=== PATIENT | female | born 1995 | race African-American/Black ===

== ENCOUNTER 2024-08-03 16:26 | Emergency (ER) | payer MEDICARE, SELFPAY ==
--- NOTE | ~2024-08-03 | US_ITS ---
EXAMINATION: US TRIPLEX LOWER EXTREMITY, RIGHT CLINICAL INFORMATION: Swelling and pain. COMPARISON: None available. TECHNIQUE: Color-flow triplex imaging with spectral analysis and compression Doppler were performed on the right lower extremity. FINDINGS: Respiratory variation, normal compression and augmented flow are noted throughout the right lower extremity. The visualized common femoral vein, superficial femoral vein, profunda femoral vein, popliteal vein and midcalf peroneal and posterior tibial venous segments show no evidence of deep venous thrombosis. There is no Ramirez's cyst. US/US venous duplex LE RT IMPRESSION: No evidence of deep venous thrombosis involving the right lower extremity. Electronically signed by: West Jerome DO 08/03/2024 09:08 PM EST RP
--- NOTE | ~2024-08-03 | XR_ITS ---
EXAMINATION: XR ANKLE, RIGHT CLINICAL INFORMATION: Swelling. COMPARISON: None available. TECHNIQUE: AP, lateral, and mortise views of the right ankle. FINDINGS: No fracture. Alignment is anatomic. No erosions. Joint spaces are maintained. There is moderate soft tissue swelling about the ankle. XR/XR ankle RT min 3V IMPRESSION: No fracture or dislocation. Moderate soft tissue swelling. Electronically signed by: West Jerome DO 08/03/2024 09:08 PM RM
--- NOTE | ~2024-08-03 | XR_ITS ---
EXAMINATION: XR FOOT, RIGHT CLINICAL INFORMATION: Swelling. COMPARISON: None available. TECHNIQUE: AP, lateral, and oblique views of the right foot. FINDINGS: There is no fracture or dislocation. Joint spaces are maintained. The regional soft tissue is swollen. XR/XR foot RT min 3V IMPRESSION: No fracture or dislocation. Soft tissue swelling. Electronically signed by: West Jerome DO 08/03/2024 09:10 PM [facility]
[2024-08-03 16:30] VITALS: BP 102/66; PULSE 112; O2SAT 97; BMI 38.0
[2024-08-03 16:43] VITALS: BP 103/51; PULSE 115; RESP 18; TEMP 36.3; O2SAT 100
--- NOTE | 2024-08-03 17:44 | ED.LOWEXIN ---
HPI - Extremity Injury (Lower) General Chief Complaint: Extremity Injury, Lower Stated Complaint: Swelling in r foot Time Seen by Provider: 08/03/24 17:24 Source: patient and EMS Mode of arrival: EMS Limitations: no limitations History of Present Illness ED Provider: FLORENCE LAY PA-C HPI Narrative: 28 year old female presents to the ED today for evaluation of swelling and pain to right foot which began yesterday. Denies any injury or trauma. Remote hx of OCP use. Denies VTE history. Denies recent tick or insect bites. Denies fever, chills, chest pain, SOB or palpitations. Patient is currently on a section 12 at [facility] for suicidal ideation. Related Data Allergies Allergy/AdvReac Type Severity Reaction Status Date / Time No Known Allergies Allergy Verified 08/03/24 16:31 Review of Systems Review of Systems: Constitutional: No fever, chills, fatigue, night sweats, weight changes ENT/Mouth: No ear pain, hearing loss, nasal congestion, sinus pain, rhinorrhea, sore throat Eyes: No eye pain, swelling, redness, vision changes, discharge Cardio: No chest pain, palpitations, MCGREGOR, orthopnea, peripheral edema Pulm: No SOB, cough, sputum, wheezing, dyspnea, hemoptysis GI: No nausea, vomiting, hematemesis, abdominal pain, diarrhea, constipation, hematochezia, melena : No irregular bleeding, dysuria, frequency, urgency, hesitancy, hematuria, flank pain, urinary flow changes, urinary incontinence or retention MSK: No back pain, neck pain, joint pain, myalgias, +swelling right foot/ ankle Skin: No lesions, rashes Neuro: No weakness, numbness, paresthesias, LOC, dizziness, headache Psych: No anxiety/panic, depression, SI/HI, AH/VH All other systems reviewed and are negative. [facility] Past Medical History Attestation statement: The following information was validated with the patient. Source: old records reviewed and nursing notes reviewed Social History Social History Smoked in Last 30 Days: No Use of substances other than those prescribed or required for medical reasons: No Advance Directives: No Advance Directives Information Provided: No Do you have a plan to hurt others: No Plan Patient : No Physical Exam Vital Signs: Vital Signs: Last Vital Signs Temp 97.9 F 08/03/24 22:20 Pulse 62 08/03/24 22:20 Resp 16 08/03/24 22:20 BP 102/58 L 08/03/24 22:20 Pulse Ox 97 08/03/24 22:20 O2 Del Method Room Air 08/03/24 18:09 BMI result Body Mass Index 38.0 tachycardic General: Well appearing, in no acute distress. Skin: Warm, dry, intact. No rashes or lesions. Head: Normocephalic, atraumatic. EENT: Hearing is intact b/l. Conjunctiva clear. PERRLA. EOM intact. Moist mucous membranes.? Neck: Supple without LAD Cardiac: Chest wall symmetric. RRR. No JVD. Lungs: Normal respiratory effort without accessory muscle use. CTA bilaterally? Abdomen: Soft, non-tender, non-distended. No rebound tenderness or guarding Back: No midline spinous or paraspinal tenderness. No step off deformity. Ext: +RLE appears more swollen when compared to left. no overlying erythema or ecchymosis. no deformity. there is 1+ pitting edema to RLE. no tenderness, crepitus or palpable deformity. no calf tenderness. FROM intact to right ankle and all toes. 2+ pt/dp pulse intact. Neuro: AOx3. Normal speech. NV intact distally. Ambulating with limping gait. Psych: Appropriate mood and affect. Responds appropriately to questions. Course Course Course Narrative: 2100 -- CBC with slight leukocytosis without left shift. no priors to compare to. normocytic anemia, H&H above transfusion threshold. chemistry without acute electrolyte abnormality requiring intervention. no melissa. bnp wnl. beta quant undetectable. patient given tylenol for pain. on my interpretation of imaging, I do no visualize acute fracture or clot. official radiology read is not back. > sign out given to my colleague mahesh pearl pending results of xr and venous duplex Reevaluation(s) Reevaluation #1: Patient received in sign-out at change of shift pending imaging. I reviewed the x-rays and the ultrasound with no acute findings. The patient is stable for discharge at this time Time: 21:38 Medications Administered Discontinued Medications Generic Name Dose Route Start Last Admin Trade Name Freq PRN Reason Stop Dose Admin Ibuprofen 600 mg 11/07/24 18:06 08/03/24 18:34 Ibuprofen 600 Mg Tablet PO 08/03/24 18:07 600 mg ONCE ONE Administration Medical Decision Making Medical Decision Making [facility] Narrative: 28 year old female presents to the ED today for evaluation of swelling and pain to right foot which began yesterday. She is nontoxic appaering and in NAD. Vital significant for tachycardia. Not hypoxic.RLE appears more swollen when compared to left. no overlying erythema or ecchymosis. no deformity. there is 1+ pitting edema to RLE. no tenderness, crepitus or palpable deformity. no calf tenderness. FROM intact to right ankle and all toes. 2+ pt/dp pulse intact. ambulating with limping gait. Differential diagnosis includes contusion, arthritis, msk sprain/ strain, fracture, dependent edema, DVT. I do not have concern for acute arterial occlusion, nv compromise, threat to limb, or compartment syndrome. Plan for labs, xr, venous duplex, pain control and re-evaluation. Differential Diagnosis Differential Diagnoses: The differential diagnosis associated with the presentation includes as above. Admission/Observation Not indicated. Lab Data [facility] Lab Attestation statement: I reviewed the patient's lab results. as above. 08/03/24 18:19 08/03/24 18:18 Labs: Lab Results 08/03/24 08/03/24 Range/Units 18:18 18:19 WBC 11.6 H (4.8-10.8) X10*3/uL RBC 3.98 L (4.20-5.50) X10*6/uL Hgb 11.0 L (12.0-16.0) g/dl Hct 33.9 L (37.0-47.0) % MCV 85.2 (80.0-98.0) fL MCH 27.6 (27.0-33.0) pg MCHC 32.4 (31.0-35.0) g/dl RDW 16.3 H (11.0-16.0) % Plt Count 220 (160-400) X10*3/uL MPV 10.1 (9.4-12.3) fL Immature Gran % (Auto) 1.3 H (0.0-0.4) % Neut % (Auto) 78.2 H (45-73) % Lymph % (Auto) 13.0 L (20-40) % [place] % (Auto) 6.9 (2-11) % Eos % (Auto) 0.3 (0-4) % Baso % (Auto) 0.3 (0-2) % Lymph # (Auto) 1.5 (1.2-4.9) X10*3/uL [place] # (Auto) 0.8 (0.1-1.2) X10*3/uL Eos # (Auto) 0.0 (0.0-0.4) X10*3/uL Baso # (Auto) 0.0 (0.0-0.2) X10*3/uL Abs Immat Gran (auto) 0.15 H (0.00-0.03) X10*3/uL Absolute Neuts (auto) 9.1 H (2.0-8.3) x10*3/uL Absolute Nucleated RBC 0.000 (0.0-0.012) X10*3/uL Nucleated RBC % (auto) 0.0 (0.0-0.2) /100WBC Sodium 137 (135-145) mmol/L Potassium 4.7 (3.3-5.1) mmol/L Chloride 108 (96-108) mmol/L Carbon Dioxide 22 (22-29) mmol/L Anion Gap 12 (12-20) BUN 10 (9-16) mg/dL Creatinine 0.76 (0.5-1.4) mg/dL Estim Creat Clear Calc 142.0 Estimated GFR > 60 Random Glucose 87 (60-115) mg/dL Calcium 9.0 (8.4-10.2) mg/dL Magnesium 2.2 (1.6-2.6) mg/dL Total Bilirubin 0.2 (0.0-1.0) mg/dL AST 35 H (5-31) U/L ALT 24 (0-31) U/L Alkaline Phosphatase 69 (39-117) U/L B-Natriuretic Peptide 32 (<100) pg/mL Total Protein 6.7 (6.5-8.0) g/dL Albumin 3.6 (3.5-5.0) g/dL Beta HCG, Quant < 2 mIU/mL Independent Interpretation I performed an independent interpretation of an: Plain X-Ray and Ultrasound Interpretation: xr right ankle/foot without fracture venous duplex RLE without clot Radiology Impression Discussion of test interpretation with radiology: I have reviewed the radiologist's reading. Radiologist Impression: EXAMINATION: XR FOOT, RIGHT CLINICAL INFORMATION: Swelling. COMPARISON: None available. TECHNIQUE: AP, lateral, and oblique views of the right foot. FINDINGS: There is no fracture or dislocation. Joint spaces are maintained. The regional soft tissue is swollen. XR/XR foot RT min 3V IMPRESSION: No fracture or dislocation. Soft tissue swelling. Electronically signed by: West Jerome DO 08/03/2024 09:10 PM EST RP EXAMINATION: XR ANKLE, RIGHT CLINICAL INFORMATION: Swelling. COMPARISON: None available. TECHNIQUE: AP, lateral, and mortise views of the right ankle. FINDINGS: No fracture. Alignment is anatomic. No erosions. Joint spaces are maintained. There is moderate soft tissue swelling about the ankle. XR/XR ankle RT min 3V IMPRESSION: No fracture or dislocation. Moderate soft tissue swelling. Electronically signed by: West Jerome DO 08/03/2024 09:08 PM EST RP EXAMINATION: US TRIPLEX LOWER EXTREMITY, RIGHT CLINICAL INFORMATION: Swelling and pain. COMPARISON: None available. TECHNIQUE: Color-flow triplex imaging with spectral analysis and compression Doppler were performed on the right lower extremity. FINDINGS: Respiratory variation, normal compression and augmented flow are noted throughout the right lower extremity. The visualized common femoral vein, superficial femoral vein, profunda femoral vein, popliteal vein and midcalf peroneal and posterior tibial venous segments show no evidence of deep venous thrombosis. There is no Ramirez's cyst. US/US venous duplex LE RT IMPRESSION: No evidence of deep venous thrombosis involving the right lower extremity. Electronically signed by: Wets Jerome DO 08/03/2024 09:08 PM EST RP Independent Historian Clinical information obtained from an independent historian. History obtained from or confirmed by: EMS Prescription Management I considered prescription management with: Pain Medication Social Determinants Patient?s care significantly limited by Social Determinants of Health including: Other Social Determinant of Health Critical Care Time Critical Care Time Critical Care Time: No Discharge Plan Discharge Clinical Impression: Edema of left lower leg Patient Disposition: Home, Self-Care Instructions: Leg Edema (ED) Additional Instructions: Your x-rays did not show any fractures. Your ultrasound does not show any blood clot. Elevate your leg above your heart while resting. Follow-up with your primary doctor Interventions: ED Discharge Assessment Last Done: 08/03/24 22:20 Discharge Date/Time: 08/03/24 22:28 Print Language: Pashto
[2024-08-03 18:09] VITALS: BP 98/47; PULSE 101; RESP 18; TEMP 36.9; O2SAT 98
[2024-08-03 18:22] LABS: MANUAL DIFF FLAG NO
[2024-08-03 18:25] LABS: Basophils Percent Auto 0.3 % (0-2); Eosinophils Percent Auto 0.3 % (0-4); Hematocrit 33.9 % (37.0-47.0); Imm Gran Abs Auto 0.15 X10*3/uL (0.00-0.03); Imm Gran Pct Auto 1.3 % (0.0-0.4); Lymphocytes Absolute Auto 1.5 X10*3/uL (1.2-4.9); Mean Corpuscular HGB Conc 32.4 g/dl (31.0-35.0); Mean Corpuscular Hemoglobin 27.6 pg (27.0-33.0); Mean Corpuscular Volume 85.2 fL (80.0-98.0); Mean Platelet Volume 10.1 fL (9.4-12.3); Monocytes Absolute Auto 0.8 X10*3/uL (0.1-1.2); Monocytes Percent Auto 6.9 % (2-11); Neutrophils Absolute Auto 9.1 x10*3/uL (2.0-8.3); Neutrophils Percent Auto 78.2 % (45-73); Platelet Count 220 X10*3/uL (160-400); Red Blood Count 3.98 X10*6/uL (4.20-5.50); Red Cell Distribution Width 16.3 % (11.0-16.0); White Blood Count 11.6 X10*3/uL (4.8-10.8)
[2024-08-03] MEDS: Ibuprofen 600 MG TABLET PO (18:34)
--- NOTE | 2024-08-03 18:37 | PC.NURSE ---
pt medicated per provider order. effectiveness pending. pt waiting for xray/ultrasound to be completed at this time. no sob/wob noted. respirations even/unlabored. plan of care ongoing.
[2024-08-03 18:42] LABS: Alanine Aminotransferase 24 U/L (0-31); Albumin Level 3.6 g/dL (3.5-5.0); Alkaline Phosphatase 69 U/L (39-117); Anion Gap 12 (12-20); Aspartate Amino Transferase 35 U/L (5-31); Bilirubin Total 0.2 mg/dL (0.0-1.0); Blood Urea Nitrogen 10 mg/dL (9-16); Carbon Dioxide 22 mmol/L (22-29); Chloride 108 mmol/L (96-108); Estimated Glomerular Filt Rate > 60; Glucose Random 87 mg/dL (60-115); Magnesium 2.2 mg/dL (1.6-2.6); Potassium 4.7 mmol/L (3.3-5.1); Sodium 137 mmol/L (135-145); Total Protein 6.7 g/dL (6.5-8.0)
[2024-08-03 18:46] LABS: B Type Natriuretic Peptide 32 pg/mL (<100)
[2024-08-03 18:51] LABS: HCG Quantitative < 2 mIU/mL
[2024-08-03 22:20] VITALS: BP 102/58; PULSE 62; RESP 16; TEMP 36.6; O2SAT 97
== END 2024-08-03 22:28 | disposition home or self-care (01) ==
PROVIDERS: Physician Assistant Medical; Emergency Provider Emergency Medicine
DX: R60.0 Localized edema (principal); M79.671 Pain in right foot; R00.0 Tachycardia, unspecified; R10.2 Pelvic and perineal pain; M25.571 Pain in right ankle and joints of right foot; Z79.899 Other long term (current) drug therapy
CPT/HCPCS: 36415; 73610; 73630; 80053; 83735; 83880; 84702; 85025; 93971; 99284